=== PATIENT | female | born 1965 | race Caucasian/White ===

== ENCOUNTER → 2019-11-13 | Outpatient (CLI) | payer OTHER ==
[~2019-11-13] MED LIST: COZAAR 50 MG TA50 M2 PO; CYMBALTA60 MG PO; IRON18 M1 PO; NORVASC5 MG PO; PRILOSEC20 MG PO; TRAMADOL 50 MG50 MG PO; TRAZODONE HCL50 MG PO; ZYRTEC10 MG PO
== END ==
LOC: CAT 09:19
PROVIDERS: ATTEND Family Medicine
DX: Z13.6 Encounter for screening for cardiovascular disorders (principal); I25.10 Atherosclerotic heart disease of native coronary artery without angina pectoris; E78.00 Pure hypercholesterolemia, unspecified

== ENCOUNTER → 2020-01-28 | Outpatient (CLI) | payer OTHER | LOC: LAB 09:22 | PROVIDERS: ATTEND Nurse Practitioner | DX: R05 Cough (principal); Z20.828 Contact with and (suspected) exposure to other viral communicable diseases ==

== ENCOUNTER → 2020-04-01 | Outpatient (CLI) | payer OTHER ==
[~2020-04-01] VITALS: Ht 167.6 cm; Wt 65.8 kg
[~2020-04-01] MED LIST changes: +ALPRAZOLAM 0.0.25 MG PO; +CLIMARA0.0375 MG TRANSDERM; +HYDROCHLOROTH12.5 M2 PO; +LUNESTA3 MG PO; +MAGNESIUM250 M1 PO; +METRONIDAZOLE70 GM TOP; +NEURONTIN300 MG PO; +PRILOSEC OTC20 MG PO; -PRILOSEC20 MG PO; +PROBIOTIC1 EAC7 PO; +PROGESTERONE200 MG PO; +TRI TOP; +[UNRECOGNIZED DRUG - OTHER] TOP
[2020-04-01 10:01] VITALS: BP 121/77
--- NOTE | 2020-04-01 10:24 | NUR ---
Pain Clinic Assessment: 1. History of Osteoarthritis: ALL OVER History of Rheumatoid Arthritis: POLYARTHRITIS 2. Height: 5 ft. 6 in. 167.6 cm. Weight: 145.0 lb. oz. 65.772 kg. Patient's BMI: 23.4 3. Vital Signs: BP: 121/77 Pulse: 94 Resp: 16 Temp: 02 Sat: 100 ECG Mon: 4. Pain Intensity: 7 5. Fall Risk: Dizziness: Y Needs help standing or walking: N Fallen in the last 3 months: N Fall risk comments: 6. Patient on Blood Thinner: None 7. History of Hypertension: Y 8. Opioid Therapy greater than 6 weeks: N Opiate Contract Signed: 9. Risk Assessment Tool Provided: -LOW-2 10. Functional Assessment Tool: 49 11. Recreational Drug Use: Never Drug Type: Tobacco Use: Never Smoker Tobacco Type: Amount or Packs/day: How Many Years: Alcohol Use: Yes Frequency: Weekly Quant: 2
--- NOTE | 2020-04-02 13:35 | HPC ---
[facility] [address] [place] [address] PAIN MANAGEMENT CONSULTATION Name: ZENAIDA TO JUANY Room #: REG MALCOLM Everett.#: [id number] Admission: 04/01/20 Attend Phys: Martin Rapp DO Discharge: Date of : 63 Report #: [id number] THIS REPORT FOR: cc: Barrera Miller MD, Neal A. MD Johnson, James E. DO ~ DATE OF SERVICE: 04/01/2020 CHIEF COMPLAINT: Chronic neck pain. HISTORY OF PRESENT ILLNESS: As you know, the patient is a 54-year-old female with longstanding history of chronic neck pain, who has been evaluated and treated in 4 different pain clinics prior to the referral to our clinic. The patient has undergone fusion at the C4-C5 and C5-C6 level, which has left her with progressively worsening findings at the level at C4-C5 with now showing increasing stenosis and ongoing pain issues. The patient has undergone cervical epidural injections in the past, which was beneficial, but will ultimately need to look toward surgical options to decompress the area above her current C5-C6 fusion. She has been referred to our service to discuss treatment options as she is failing conservative treatment. The patient reports today pain is constant. She describes the pain as burning, shooting, cramping, throbbing, sharp and stabbing, places current pain score 7/10, daily average of 6-7/10, worst pain has been is 7/10. The patient states pain is exacerbated with virtually all activities including lifting, exercise, sleeping, and going about daily activities including typing at her computer. She indicates pain is improved with rest and pain medications. She has been referred to our service to discuss interventional treatment options and possible adjustments in medications to address ongoing pain. PAST MEDICAL HISTORY: 1. Asthma. 2. Hypertension. 3. Degenerative joint disease. 4. Osteoarthritis. 5. Gastroesophageal reflux disease. 6. Chronic neck pain. 7. Anxiety disorder. 8. Fibromyalgia. PAST SURGICAL HISTORY: 1. Cholecystectomy. 2. Left shoulder debridement and repair of labral tear. 3. section. 4. Cervical diskectomy with fusion at C6-C7. 5. Left shoulder Bankart surgery. [facility] [address] [place] [address] PAIN MANAGEMENT CONSULTATION Name: ZENAIDA TO JUANY [facility] [id number] Admission: 04/01/20 Attend Phys: Martin Rapp DO Discharge: Date of : 63 Report #: [id number] 6. Cervical diskectomy with fusion, C5-C6. 7. Left carpal tunnel release. 8. Right carpal tunnel release. SOCIAL HISTORY: The patient reports she is a nonsmoker. She admits to 2 glasses of wine per night. She is currently employed as an medical administrative. She is working, not receiving workmen's compensation nor is she trying to obtain discrete benefits. She is not in litigation regards to pain. She is unaccompanied at today's visit. REVIEW OF SYSTEMS: Positive for weight change, night sweats, fatigue, weakness, frequent and recurrent headaches, wearing corrective eyewear, chronic sinus problems with rhinitis, sore throat, voice changes, changes in bowel movements, constipation, abdominal pain, nocturia, rash and itching, lightheadedness and dizziness, numbness and tingling sensations, nervousness, depression, nervousness, depression, insomnia, hormonal problems, heat and cold intolerance, slow to heal after cuts, bleeding and bruising tendencies, and anemia. All other review of systems negative per 12-point review of systems other than those listed in history of present illness. Pain impact score 49 of 70 indicating severe interference of daily activities secondary to pain. ALLERGIES: MICONAZOLE AND ADHESIVE TAPE. CURRENT MEDICATIONS: Metronidazole, applied topically once a day, probiotic 1 tab per day, alprazolam 0.25 mg once a day, magnesium 250 mg once a day, estradiol 0.0375 mcg patch transdermal progesterone 200 mg orally once a day, Neurontin 300 mg twice a day, hydrochlorothiazide 12.5 mg once a day, Lunesta 3 mg p.o. at bedtime, omeprazole 20 mg per day, duloxetine 60 mg once a day, losartan 50 mg once a day, cetirizine 10 mg once a day. IMAGING: MRI of C4-C5 obtained on 03/05/2020 shows a listhesis, disk osteophyte complex, uncinate process spurring, buckling of the ligamentum flavum combining to form moderate central canal stenosis, foraminal narrowing, moderate bilaterally. There is fusion hardware at C5-C6 and C6-C7. There is disk osteophyte complex, uncinate process spurring at C7-T1 with mild right foraminal narrowing. PHYSICAL EXAMINATION: VITAL SIGNS: Blood pressure 121/77, pulse 94, respiratory rate 16 and unlabored. The patient is 100% on room air. Height 5 feet 6 inches tall, weight 145 pounds, BMI calculated 23.4. GENERAL: Well-developed, well-nourished, well-hydrated 54-year-old female, appearing stated age, pain is rated today 7/10. HEENT: Normocephalic, atraumatic. Pupils equal, round and reactive. [facility] [address] [place] [address] PAIN MANAGEMENT CONSULTATION Name: ZENAIDA TO Room #: [facility]#: [id number] Admission: 04/01/20 Attend Phys: Martin Rapp DO Discharge: Date of : 63 Report #: [id number] Extraocular muscles are intact. Sclerae nonicteric without injection. NEUROLOGIC: Speech is fluent. The patient is wearing a mask in compliance with COVID-19 regulations. LUNGS: Appear clear. No wheezes, rhonchi or audible rales. CARDIOVASCULAR: Regular. No appreciable gallop or rub. ABDOMEN: Soft. EXTREMITIES: Show no clubbing, no cyanosis. No appreciable edema. MUSCULOSKELETAL: Upper extremity strength appears symmetrical 5/5. Muscle bulk and tone equal and symmetrical in upper extremities. Palpatory tenderness is noted over the paraspinal musculature of cervical spine. No spinous process tenderness. Spurling's test is negative. Pain is elicited with active and passive range of the cervical spine, specifically with extension, rotation, lateral flexion and rotation. Deep tendon reflexes equal and symmetrical in upper extremities. She remains intact to light touch from C5-T1 dermatomes. ASSESSMENT: 1. Chronic cervical radiculopathy. 2. Progressively worsening central canal stenosis of the cervical spine. 3. Cervical spondylosis with radiculopathy. 4. Failed surgical spine surgery. 5. Chronic intractable pain. PLAN: Based on today's physical exam and history the patient has provided, the description the patient uses in regards to pain, likely source of the patient's symptoms is related to the spinal stenosis at the C4-C5 level and chronic symptoms related to decrease mobility, status post fusion of the C5-C6 and C6-C7 levels, leaving the patient with myofascial symptoms. We have discussed this with the patient today. The treatment options we have available are as follows: 1. We discussed physical therapy with traction techniques as a treatment course. This should improve the patient's overall pain, but has to be somewhat restricted in that we do not wish to exacerbate her chronic symptoms secondary to fusion. We discussed adjustments in neuropathic pain medications as a way to treat her ongoing pain issues. We also discussed cervical epidural injections for which the patient was seen for other pain services and underwent procedures with them in the past with efficacy. She also has described treatment including the surgical option, which will likely be necessary at the C4-C5 level to decompress the central canal and decrease the progression of central canal stenosis. After reviewing risks and benefits of all proposed treatment options, the patient chose to make adjustments in medication management. 2. The patient was provided an increase in her gabapentin. Currently, she is taking 300 mg twice a day, will increase to 3 times a day for 3 days, then increase to 300 mg morning, 300 mg at noon and 600 mg at night for 3 nights, then progressed to 300 mg morning, 300 mg at noon and 900 mg at night for 3 nights. If no improvement in symptoms, no side effects, continue the titration [address] [address] PAIN MANAGEMENT CONSULTATION Name: ZENAIDA TO JUANY Room #: REG CLPaola Novoa#: [id number] Admission: 04/01/20 Attend Phys: Martin Rapp DO Discharge: Date of : 63 Report #: [id number] up to 900 mg 3 times a day. I have provided the patient a prescription of gabapentin to her local pharmacy to begin and continue the titration. The patient was advised anytime during the titration, she notes improvement in symptoms, stabilize at that level, do not increase the medication further. If no improvement in symptoms, no side effects, continue the titration. 3. We will begin the process of authorizing the patient to undergo a cervical epidural injection under fluoroscopic guidance. Authorization could take anywhere from 7-14 days. We will begin that process immediately, have the patient return once this has been completed. We are hopeful to have that authorization quickly to undergo a C7-T1 cervical epidural steroid injection under fluoroscopic guidance to address cervical radicular symptoms. We will discuss efficacy at followup visit. 4. We wish to thank Dr. Barrera Miller for the referral of this patient to our clinic. We will keep you apprised of response to treatment as we address cervical radiculopathy with interventional treatments and suggestions and treatment options with medications. Again, we wish to thank you for the opportunity to see the patient in consultation. <ELECTRONICALLY SIGNED> By: Martin Rapp DO 04/02/20 1335 [id number] 1215 Martin Rapp DO /nt
== END ==
LOC: PAIN 06:47
PROVIDERS: ATTEND Anesthesiology Pain Medicine
DX: M47.22 Other spondylosis with radiculopathy, cervical region (principal); G89.4 Chronic pain syndrome; M48.02 Spinal stenosis, cervical region; Z79.891 Long term (current) use of opiate analgesic

== ENCOUNTER → 2020-08-27 | Outpatient (CLI) | payer OTHER ==
[~2020-08-27] VITALS: Ht 167.6 cm; Wt 66.0 kg
[~2020-08-27] MED LIST changes: +IBU600 MG PO
[2020-08-27 11:01] VITALS: BP 152/93
--- NOTE | 2020-08-27 11:27 | NUR ---
Pain Clinic Assessment: 1. History of Osteoarthritis: ALL OVER History of Rheumatoid Arthritis: POLYARTHRITIS 2. Height: 5 ft. 6 in. 167.6 cm. Weight: 145.6 lb. oz. 66.044 kg. Patient's BMI: 23.5 3. Vital Signs: BP: 152/93 Pulse: 74 Resp: 14 Temp: 02 Sat: 100 ECG Mon: 4. Pain Intensity: 8 5. Fall Risk: Dizziness: Y Needs help standing or walking: N Fallen in the last 3 months: Y Fall risk comments: 6. Patient on Blood Thinner: None 7. History of Hypertension: Y 8. Opioid Therapy greater than 6 weeks: N Opiate Contract Signed: 9. Risk Assessment Tool Provided: -LOW-2 10. Functional Assessment Tool: 49 11. Recreational Drug Use: Never Drug Type: Tobacco Use: Never Smoker Tobacco Type: Amount or Packs/day: How Many Years: Alcohol Use: Yes Frequency: Weekly Quant: 2
--- NOTE | 2020-09-02 11:00 | HPC ---
[facility] [place] [address] PAIN MANAGEMENT CONSULTATION Name: ZENAIDA TO Room #: REG MALCOLM Ronda.#: [id number] Admission: 08/27/20 Attend Phys: Martin Rapp DO Discharge: Date of : 63 Report #: [id number] THIS REPORT FOR: cc: Barrera Miller MD, Neal A. MD Johnson, James E. DO ~ DOC #: [id number] cc: MD Martin Drew DO DATE OF SERVICE: 08/27/2020 DATE OF SERVICE: 08/27/2020 CHIEF COMPLAINT: Chronic neck pain. HISTORY OF PRESENT ILLNESS: As you know, the patient is a 54-year-old female with longstanding history of chronic neck pain, evaluated by four different pain clinics prior to referral to our clinic. She has undergone fusion of the C4-C5, C5-C6 levels, but remains with left upper extremity pain and paresthesias. She was referred to our clinic to discuss interventional treatment options. We saw the patient in consultation on 04/01/2020 where she was diagnosed with chronic cervical radiculopathy and progressively worsening central canal stenosis of the cervical spine. She was given options for treatment and chose to begin medication management. She returns today in followup visit stating a pain level of 8/10 requesting to undergo a cervical epidural injection under fluoroscopic guidance. The patient denied new injury or trauma that may have led to symptom reoccurrence. She is denying any changes in medication management that preclude her from undergoing an epidural injection today. ALLERGIES: MICONAZOLE AND ADHESIVE TAPE. CURRENT MEDICATIONS: Sertraline, losartan, duloxetine, omeprazole, Lunesta, hydrochlorothiazide, gabapentin, progesterone, estradiol, magnesium, alprazolam, metronidazole, and ibuprofen. SOCIAL HISTORY: The patient reports she is a nonsmoker, admits to 2 glasses of wine per night. She is employed as an carpenter assistant installer, unaccompanied today. IMAGING: No new imaging available. PHYSICAL EXAMINATION: VITAL SIGNS: Blood pressure 152/93, pulse is 74, respiratory rate 14 and unlabored. The patient 100% on room air. Height 5 feet 6 inches tall, weight 145.6 pounds, BMI calculated 23.5. GENERAL: Well-developed, well-nourished, well-hydrated 54[place] [address] PAIN MANAGEMENT CONSULTATION Name: ZENAIDA TO Room #: REG CLPaola JoannRonda#: [id number] Admission: 08/27/20 Attend Phys: Martin Rapp DO Discharge: Date of : 63 Report #: [id number] appearing stated age, pain is rated today at 8/10. HEENT: Normocephalic, atraumatic. Pupils are round and responsive. She is wearing a mask in compliance with COVID-19 regulations. EXTREMITIES: Show no clubbing, no cyanosis and no edema. MUSCULOSKELETAL: Upper extremity strength is symmetrical again today 5/5. Muscle bulk and tone is equal and symmetrical in upper extremities. Palpatory tenderness is once again noted over the paraspinal musculature of the cervical spine. No spinous process tenderness. Spurling's test remains negative. ASSESSMENT: 1. Chronic cervical radiculopathy. 2. Progressively worsening central canal stenosis of the cervical spine. 3. Cervical spondylosis with radiculopathy. 4. Failed cervical spine surgery. 5. Chronic intractable pain. PLAN: 1. The patient returns today in followup visit requesting to undergo a cervical epidural injection under fluoroscopic guidance to address her ongoing cervical radicular symptoms. The patient continues to take medication management, but is noticing minimal benefit. She returns to undergo cervical epidural injection in hopes of improving pain today. The patient has been advised risks and benefits of the procedure, states understood and wished to proceed. 2. No medication changes made at today's visit. The patient will continue current medical therapy as prior prescribed. 3. We plan to see the patient back in followup visit to undergo the next in the series of cervical epidural injections. We are hopeful the patient will see good and prolonged benefit with today's procedure. PROCEDURE NOTE DESCRIPTION OF PROCEDURE: C7-T1 cervical epidural steroid injection under fluoroscopic guidance. This is the first procedure of the first series that the patient is undergoing. After obtaining written consent, the patient was taken back to the fluoroscopy suite and placed in a prone position with separate pillows under chest and forehead to decrease cervical lordosis. The skin overlying the cervical area was prepped and draped in an aseptic fashion. The C7-T1 vertebral interspace was identified by AP fluoroscopy. The skin and subcutaneous tissue overlying the target site of injection was anesthetized using 3 mL of 1% lidocaine. A 20-gauge 3-1/2 inch Tuohy needle was advanced under fluoroscopic guidance toward the epidural space using a midline approach. The epidural space was identified using a loss of resistance to air technique. After negative [facility] [address] [place] [address] PAIN MANAGEMENT CONSULTATION Name: ZENAIDA TO Room #: REG MALCOLM Novoa#: [id number] Admission: 08/27/20 Attend Phys: Martin Rapp DO Discharge: Date of : 63 Report #: [id number] aspiration for heme or cerebrospinal fluid, a total of 1 ml of Omnipaque was injected. A cervical epidurogram was confirmed using AP and oblique fluoroscopy. After negative aspiration for heme or cerebrospinal fluid, 5 ml of solution containing 2 ml, 40 mg per ml, 80 mg total triamcinolone along with 3 ml of lidocaine 1% was injected in increments. Contrast spread was noted from posterior epidural space. The needle was then retracted approximately usp and the needle track was flushed with 1 mL of 1% lidocaine. There were no apparent new sensory deficits in the upper extremities present following the procedure. A sterile bandage was placed over the injection site. The heart rate, pulse oximetry and blood pressure were continuously monitored after the procedure. There were no apparent complications. The patient tolerated the procedure well and was carefully escorted in the recovery room in stable condition. After meeting discharge criteria, the patient was discharged home. Martin Rapp DO JEJ/HUS <ELECTRONICALLY SIGNED> By: Martin Rapp DO 09/02/20 1100 [id number] 0910 Martin Rapp DO /nt
== END | disposition home or self-care (01) ==
LOC: PAIN 07:05
PROVIDERS: ATTEND Anesthesiology Pain Medicine
DX: M47.22 Other spondylosis with radiculopathy, cervical region (principal); M48.061 Spinal stenosis, lumbar region without neurogenic claudication; M96.1 Postlaminectomy syndrome, not elsewhere classified; G89.29 Other chronic pain; M19.90 Unspecified osteoarthritis, unspecified site; Z98.890 Other specified postprocedural states; Z79.899 Other long term (current) drug therapy; Z88.8 Allergy status to other drugs, medicaments and biological substances

== ENCOUNTER → 2021-01-28 | Outpatient (CLI) | payer OTHER ==
[~2021-01-28] VITALS: Ht 167.6 cm; Wt 66.0 kg
[2021-01-28 11:01] VITALS: BP 140/93
--- NOTE | 2021-01-28 11:32 | NUR ---
Pain Clinic Assessment: 1. History of Osteoarthritis: ALL OVER History of Rheumatoid Arthritis: POLYARTHRITIS 2. Height: 5 ft. 6 in. 167.6 cm. Weight: 145.4 lb. oz. 65.953 kg. Patient's BMI: 23.5 3. Vital Signs: BP: 140/93 Pulse: 83 Resp: 16 Temp: 02 Sat: 100 ECG Mon: 4. Pain Intensity: 6-7 5. Fall Risk: Dizziness: N Needs help standing or walking: N Fallen in the last 3 months: N Fall risk comments: 6. Patient on Blood Thinner: None 7. History of Hypertension: Y 8. Opioid Therapy greater than 6 weeks: N Opiate Contract Signed: 9. Risk Assessment Tool Provided: -LOW-2 10. Functional Assessment Tool: 49/70 11. Recreational Drug Use: Never Drug Type: Tobacco Use: Never Smoker Tobacco Type: Amount or Packs/day: How Many Years: Alcohol Use: Yes Frequency: Quant:
--- NOTE | 2021-02-03 10:04 | HPC ---
[address] [address] PAIN MANAGEMENT CONSULTATION Name: ZENAIDA TO Room #: REG [facility].#: [id number] Admission: 01/28/21 Attend Phys: Martin Rapp DO Discharge: Date of : 63 Report #: [id number] THIS REPORT FOR: cc: Barrera Miller MD,Martin Cortez MD, DO ~ cc: Barrera Miller MD DATE OF SERVICE: 01/28/2021 REFERRING PHYSICIAN: Barrera Miller MD CHIEF COMPLAINT: Chronic neck pain. HISTORY OF PRESENT ILLNESS: As you know, the patient is a 55-year-old female with longstanding history of chronic neck pain, referred to our clinic to trial cervical epidural injections under fluoroscopic guidance. The patient underwent the first in the series of cervical epidural injections per the request of Dr. Barrera Miller on 08/27/2020. The patient reports with that injection she received approximately 50% improvement in overall pain lasting until just recently where she has had a slow and progressive return of symptoms now reporting a total of 30% overall improvement. She returns for the next in the series of epidural injections. The patient places current pain score 6-7/10. She describes the pain as more of a numbness, constant, shooting, burning, aching, cramping, stabbing, throbbing and tingling sensations. Pain is exacerbated with lifting, typing, exercise, sleeping in bed and making the bed. She has been referred back to our clinic to trial the next in the series of cervical epidural injections in hopes of further analgesic benefit. The patient denies new injury, new trauma or any changes in medication management that would preclude the patient from undergoing an injection today. ALLERGIES: MICONAZOLE and ADHESIVE TAPE. CURRENT MEDICATIONS: Sertraline, losartan, duloxetine, omeprazole, Lunesta, metronidazole, ibuprofen, gabapentin, progesterone, estradiol, magnesium oxide, alprazolam, and hydrochlorothiazide. SOCIAL HISTORY: The patient reports she is a nonsmoker. Admits to 2 glasses of wine per night. She is employed as an district administrative assistant, unaccompanied today. IMAGING: No new imaging available. PHYSICAL EXAMINATION: VITAL SIGNS: Blood pressure 140/93, pulse 83, respiratory rate 16 and unlabored. The patient 100% on room air. Height 5 feet 6 inches tall, weight 145.4 pounds, BMI calculated 23.5. [facility] [address] [place] [address] PAIN MANAGEMENT CONSULTATION Name: ZENAIDA TO Room #: REG [facility]#: [id number] Admission: 01/28/21 Attend Phys: Martin Rapp DO Discharge: Date of : 63 Report #: [id number] GENERAL: Well-developed, well-nourished, well-hydrated 55-year-old female appearing stated age, pain is rated today 6-7/10. HEENT: Normocephalic, atraumatic. Pupils equal, round and responsive. She is wearing a mask in compliance with COVID-19 regulations and hospital policy. EXTREMITIES: Show no clubbing, no cyanosis, no edema. MUSCULOSKELETAL: Upper extremity strength remains symmetrical 5/5. Muscle bulk and tone is equal and symmetrical in upper extremities. Palpatory tenderness is once again noted over the paraspinal musculature of the cervical spine. No spinous process tenderness noted through evaluation. Spurling's test is negative. Upper extremity sensation is intact to light touch from C5 to T1 dermatomes. ASSESSMENT: 1. Cervical radiculopathy. 2. Progressively worsening central canal of the cervical spine. 3. Cervical spondylosis with radiculopathy. 4. Failed cervical spine surgery. 5. Chronic intractable pain. PLAN: 1. The patient returns today in followup visit per the request of Dr. Miller to undergo the second in the series of cervical epidural injections in hopes of providing further analgesic benefit. The patient reports about a 50% improvement in overall pain initially with the injection, but unfortunately over time, her symptoms have reoccurred. She is now reporting a total of 30% improvement. She returns for the second in the series of cervical epidural injection performed today. The patient and I discussed the treatment options that we had available and the risks and benefits of the proposed injection today. She states she understood and wished to proceed. 2. No medication changes made at today's visit. The patient will continue current medical therapy as prior prescribed. 3. We plan to see the patient back in followup visit on an as needed basis for the third in the series of cervical epidural injections. I am hopeful the patient will see good and prolonged benefit with today's procedure. We will see her back p.r.n. DESCRIPTION OF PROCEDURE: C7-T1 cervical epidural steroid injection under fluoroscopic guidance. This is the second procedure of the first series that the patient is undergoing. After obtaining written consent, the patient was taken back to the fluoroscopy suite and placed in a prone position with separate pillows under chest board to decrease cervical lordosis. The skin overlying the cervical area was prepped and draped in an aseptic fashion. The C7-T1 vertebral interspace was identified by AP fluoroscopy. The skin and subcutaneous tissue overlying the target site [address] [address] PAIN MANAGEMENT CONSULTATION Name: ZENAIDA TO Room #: REG [facility]#: [id number] Admission: 01/28/21 Attend Phys: Martin Rapp DO Discharge: Date of : 63 Report #: [id number] of injection was anesthetized using 3 mL of 1% lidocaine. A 22-gauge 3-1/2-inch Tuohy needle was advanced under fluoroscopic guidance toward the epidural space using a midline approach. The epidural space was identified using a loss of resistance to air technique. After negative aspiration for heme or cerebrospinal fluid, a total of 1 mL of Omnipaque was injected. A cervical epidurogram was confirmed using AP and oblique fluoroscopy. After negative aspiration for heme or cerebrospinal fluid, 5 mL of a solution containing 2 mL 40 mg per mL 80 mg total triamcinolone along with 3 mL of lidocaine 1% was injected in increments. Contrast spread was noted from posterior epidural space. The needle was then retracted approximately half-way and the needle track was flushed with 1 mL of 1% lidocaine. There were no apparent new sensory deficits in the upper extremities present following the procedure. A sterile bandage was placed over the injection site. The heart rate, pulse oximetry and blood pressure were continuously monitored after the procedure. There were no apparent complications. The patient tolerated the procedure well and was carefully escorted in the recovery room in stable condition. After meeting discharge criteria, the patient was discharged home. <ELECTRONICALLY SIGNED> By: Martin Rapp DO 02/03/21 [id number] [id number] Martin Rapp DO /el
== END | disposition home or self-care (01) ==
LOC: PAIN 10:37
PROVIDERS: ATTEND Anesthesiology Pain Medicine
DX: M47.22 Other spondylosis with radiculopathy, cervical region (principal); M48.02 Spinal stenosis, cervical region; M96.1 Postlaminectomy syndrome, not elsewhere classified; G89.29 Other chronic pain; Z98.890 Other specified postprocedural states; Z79.899 Other long term (current) drug therapy

== ENCOUNTER → 2021-04-02 | Outpatient (CLI) | payer OTHER | LOC: ULTRA 08:58 | PROVIDERS: ATTEND Family Medicine | DX: M79.89 Other specified soft tissue disorders (principal); M79.604 Pain in right leg ==